=== PATIENT | male | born 1985 | race American Indian/Alaskan Native ===

== ENCOUNTER 2019-11-17 13:32 | Emergency (ER) | payer SELFPAY ==
[2019-11-17] MEDS ORDERED: dexAMETHasone 20 MG/5 ML VIAL IM ONE (14:15)
[2019-11-17] MEDS ORDERED: ALBUTEROL 2.5 MG/3 ML NEBU IH ONE (14:15)
[2019-11-17] MEDS ORDERED: IPRATROPIUM 0.02% NEBU 2.5 ML IH ONE (14:15)
--- NOTE | 2019-11-17 15:00 | XRay Report ---
CHEST 1 VIEW INDICATION: SOB, wheezing. COMPARISON: None. FINDINGS: Support devices: None. Heart: Normal. Lungs/Pleura: No acute pulmonary or pleural findings. IMPRESSION: 1. No acute findings. Signer Name: Willie Harris MD Signed: 11/17/2019 2:56 PM Workstation Name: [id number]
[2019-11-17] MEDS ORDERED: MAGNESIUM SULFATE 2 GM/50 ML BAG IV ONE (15:20)
[2019-11-17] MEDS ORDERED: SODIUM CHLORIDE 0.9% 1000 ML 1,000 ML IV ONE (15:20)
--- NOTE | 2019-11-17 16:24 | Emergency Department Report ---
ED Asthma HPI - General Chief Complaint: Dyspnea/Respdistress Stated Complaint: ASTHMA Time Seen by Provider: 11/17/19 14:12 Source: patient Mode of arrival: Wheelchair Limitations: No Limitations - History of Present Illness Initial Comments: Patient is a 34-year-old male presents emergency room with complaints of an asthma exacerbation that began last night. He has associated shortness of breath, chest tightness, wheezing. He denies any fever, cough, nausea, vomiting, diarrhea. He denies any sick contacts. He states he just recently traveled here from [place]. Patient states that he uses Dulera, albuterol inhaler, albuterol nebulizer for his asthma. He states that he used all of those medications today. He states that he ran out of his albuterol inhaler today. He also has a past medical history of hypertension. Has an allergy to sulfa. - Related Data Previous Rx's Medication Instructions Recorded Last Taken Type Albuterol Sulfate [Proventil Hfa] 6.7 gm IH TID PRN #1 hfa.aer.ad 11/17/19 Unknown Rx Prednisone [predniSONE 10 mg 10 mg PO .TAPER #1 tab.ds.pk 11/17/19 Unknown Rx (6-Day Pack, 21 Tabs)] Allergies Allergy/AdvReac Type Severity Reaction Status Date / Time Sulfa (Sulfonamide Allergy Unknown Verified 11/17/19 13:47 Antibiotics) ED Review of Systems ROS: Stated complaint: ASTHMA Other details as noted in HPI Comment: All other systems reviewed and negative ED Past Medical Hx - Past Medical History Previous Medical History?: Yes Hx Hypertension: Yes Hx Asthma: Yes - Surgical History Past Surgical History?: No - Medications Home Medications: Home Medications Medication Instructions Recorded Confirmed Last Taken Type Albuterol Sulfate [Proventil Hfa] 6.7 gm IH TID PRN #1 hfa.aer.ad 11/17/19 Unknown Rx Prednisone [predniSONE 10 mg 10 mg PO .TAPER #1 tab.ds.pk 11/17/19 Unknown Rx (6-Day Pack, 21 Tabs)] ED Physical Exam - General Limitations: No Limitations General appearance: alert - Head Head exam: Present: atraumatic, normocephalic - Eye Eye exam: Present: normal appearance - ENT ENT exam: Present: mucous membranes moist - Respiratory Respiratory exam: Present: respiratory distress (mild), wheezes, accessory muscle use, decreased breath sounds, other (poor air movement). Absent: rales, rhonchi, stridor - Cardiovascular Cardiovascular Exam: Present: normal rhythm, tachycardia, normal heart sounds. Absent: systolic murmur, diastolic murmur, rubs, gallop - Neurological Exam Neurological exam: Present: alert, oriented X3 - Psychiatric Psychiatric exam: Present: normal affect, normal mood - Skin Skin exam: Present: warm, dry, intact ED Course Vital Signs 11/17/19 11/17/19 11/17/19 13:55 16:01 17:27 Temperature 97.9 F Pulse Rate 120 H 105 H Respiratory 22 22 18 Rate Blood Pressure 148/94 147/80 [Right] O2 Sat by Pulse 93 99 95 Oximetry ED Medical Decision Making - Lab Data Vital Signs 11/17/19 11/17/19 11/17/19 13:55 16:01 17:27 Temperature 97.9 F Pulse Rate 120 H 105 H Respiratory 22 22 18 Rate Blood Pressure 148/94 147/80 [Right] O2 Sat by Pulse 93 99 95 Oximetry - Radiology Data Radiology results: report reviewed CHEST 1 VIEW INDICATION: SOB, wheezing. COMPARISON: None. FINDINGS: Support devices: None. Heart: Normal. Lungs/Pleura: No acute pulmonary or pleural findings. IMPRESSION: 1. No acute findings. Signer Name: Willie Harris MD Signed: 11/17/2019 2:56 PM Workstation Name: [id number] Transcribed By: SAVANA Dictated By: Willie Harris MD Electronically Authenticated By: Willie Harris MD Signed Date/Time: 11/17/191455 DD/ 55 TD/TT: - Medical Decision Making Patient is a 34-year-old male presents emergency room with complaints of an asthma exacerbation that began last night. He has associated shortness of breath, chest tightness, wheezing. He denies any fever, cough, nausea, vomiting, diarrhea. He denies any sick contacts. He states he just recently traveled here from [place]. Patient states that he uses Dulera, albuterol inhaler, albuterol nebulizer for his asthma. He states that he used all of those medications today. He states that he ran out of his albuterol inhaler today. He also has a past medical history of hypertension. Has an allergy to sulfa. Initial vitals with tachycardia and hypoxia. On exam patient is in mild respiratory distress, accessory muscle use, wheezing, very poor air movement. Patient given albuterol, Atrovent, dexamethasone, magnesium. CXR: 1. No acute findings. On reexamination breath sounds have improved, wheezing has improved, patient now has improved air movement, no respiratory distress, no accessory muscle use. His oxygen saturation is now normal and his tachycardia has improved. Patient has no clinical signs of pneumonia or bacterial bronchitis. Patient given prescription for albuterol inhaler and prednisone, he states that he has his other asthma medications. Advised patient Please use medication as prescribed. Please also do your nebulizer treatments every 4 hours until this exacerbation has completely resolved. Follow-up with your primary care doctor in the next 2 days for reexamination. Return to the emergency room immediately for any new or worsening symptoms including but not limited to worsening shortness of breath, worsening chest tightness, worsening wheezing, or if symptoms or not improving. Critical care attestation.: If time is entered above; I have spent that time in minutes in the direct care of this critically ill patient, excluding procedure time. ED Disposition Clinical Impression: Asthma exacerbation Qualifiers: Asthma severity: unspecified severity Asthma persistence: unspecified Qualified Code(s): J45.901 - Unspecified asthma with (acute) exacerbation Disposition: - TO HOME OR SELFCARE Is pt being admited?: No Does the pt Need Aspirin: No Condition: Stable Instructions: Asthma (ED) Additional Instructions: Please use medication as prescribed. Please also do your nebulizer treatments every 4 hours until this exacerbation has completely resolved. Follow-up with your primary care doctor in the next 2 days for reexamination. Return to the emergency room immediately for any new or worsening symptoms including but not limited to worsening shortness of breath, worsening chest tightness, worsening wheezing, or if symptoms or not improving. Prescriptions: Prednisone [predniSONE 10 mg (6-Day Pack, 21 Tabs)] 10 mg PO .TAPER #1 tab.ds.pk Albuterol Sulfate [Proventil Hfa] 6.7 gm IH TID PRN #1 hfa.aer.ad PRN Reason: Wheezing Referrals: PRIMARY CARE, [Primary Care Provider] - 2-3 Days Time of Disposition: 17:27 Print Language: DOMINICAN
[2019-11-17 17:28] VITALS: BP 147/80
== END 2019-11-17 17:32 | disposition home or self-care (01) ==
LOC: ED 13:32
DX: J45.901 Unspecified asthma with (acute) exacerbation (principal); I10 Essential (primary) hypertension
CPT/HCPCS: 71045; 96365; 96366; 96372; 99283; J1100; J3475; J7030